=== PATIENT | female | born 1990 | race Caucasian/White ===

== ENCOUNTER 2018-06-02 16:02 | Observation (INO) | payer SELFPAY ==
[2018-06-02] MEDS ORDERED: NALOXONE HCL INJ 2 MG/2 ML DISP.SYRIN IV ONE (16:11)
[2018-06-02 16:26] LABS: ABSOLUTE EOSINOPHILS # (AUTO) 0.1 10^3/uL (0.0-0.6); ABSOLUTE LYMPHOCYTES (AUTO) 2.1 10^3/uL (0.5-4.7); ABSOLUTE MONOCYTES (AUTO) 0.4 10^3/uL (0.1-1.4); ABSOLUTE NEUT (AUTO) 3.6 10^3/uL (1.7-8.2); BASOPHILS % (AUTO) 0.4 % (0-2); EOSINOPHILS % (AUTO) 1.4 % (0-6); HEMATOCRIT 41.5 % (36.0-47.0); HEMOGLOBIN 14.3 g/dL (12.0-15.5); LYMPHOCYTES % (AUTO) 33.7 % (13-45); MEAN CORPUSCULAR HEMOGLOBIN 29.8 pg (27.0-33.4); MEAN CORPUSCULAR HGB CONC 34.5 g/dL (32.0-36.0); MEAN CORPUSCULAR VOLUME 86 fl (80-97); PLATELET COUNT 220 10^3/uL (150-450); RED BLOOD COUNT 4.82 10^6/uL (3.72-5.28); SEGMENTED NEUTROPHILS % (AUTO) 58.5 % (42-78); TOTAL CELLS COUNTED % (AUTO) 100 %; WHITE BLOOD COUNT 6.1 10^3/uL (4.0-10.5)
--- NOTE | 2018-06-02 16:28 | ER Document Report ---
ED General - General Stated Complaint: POSSIBLE OVERDOSE Time Seen by Provider: 06/02/18 16:11 - HPI Notes: Patient is a 27-year-old female that presents to the emergency department for chief complaint of overdose and suicide attempt. Patient has bipolar disease. Her family member found her locked in the bathroom today somnolent. Patient reported that she overdosed on her medications and was trying to kill herself. Patient's states that her home medication bottles are empty. He believes she took olanzapine and Klonopin. He states there was probably only 3 or 4 pills of the Klonopin left but he does not know the dose. He states there was only a few olanzapine left because she was due to get refills on all of her medications soon. The exact dose and quantity of her ingestion is unknown. He believes she ingested these medicines about 40 minutes prior to arrival in the emergency room. Patient currently is just stating she feels tired, she has no other complaints. Past Medical History: Bipolar type I Past Surgical History: Negative Social History: Daily tobacco/vaporized nicotine. Denies alcohol and drug use Family History: Reviewed and noncontributory for presenting illness Allergies: Reviewed, see documented allergy list. REVIEW OF SYSTEMS: CONSTITUTIONAL : No fever Fatigue No chills No diaphoresis No recent illness EENT: No vision changes No congestion No sore throat CARDIOVASCULAR: No chest pain No palpitations RESPIRATORY: No shortness of breath No cough No difficulty breathing GASTROINTESTINAL: No abdominal pain No nausea No vomiting No diarrhea GENITOURINARY: No dysuria No hematuria No difficulty urinating MUSCULOSKELETAL: No back pain No leg pain No arm pain SKIN: No rashes No lesions LYMPHATIC: No swollen, enlarged glands. NEUROLOGICAL: No lightheadedness No headache No weakness No paresthesias PSYCHIATRIC: No anxiety No depression PHYSICAL EXAMINATION: Vital signs reviewed, nursing noted reviewed. GENERAL: Somnolent and in no acute distress. HEAD: Atraumatic, normocephalic. EYES: Eyes appear normal, extraocular movements intact, sclera anicteric, conjunctiva are normal. ENT: nares patent, oropharynx clear without exudates. Moist mucous membranes. NECK: Normal range of motion, supple without lymphadenopathy LUNGS: Breath sounds clear to auscultation bilaterally and equal. No wheezes rales or rhonchi. HEART: Regular rate and rhythm without murmurs ABDOMEN: Soft, nontender, normoactive bowel sounds. No rebound, guarding, or rigidity. No masses appreciated. EXTREMITIES: Nontender, good range of motion, no pitting or edema. NEUROLOGICAL: GCS 14, moves all extremities spontaneously Motor and sensory grossly intact on exam. PSYCH: Normal mood, normal affect. SKIN: Warm, Dry, normal turgor, no rashes or lesions noted on exposed skin - Related Data Allergies/Adverse Reactions: No Known Allergies Allergy (Verified 06/02/18 17:24) Past Medical History - Social History Smoking Status: Never Smoker Family History: Reviewed & Not Pertinent Physical Exam - Vital signs Vitals: Temp Pulse Resp BP Pulse Ox 98.5 F 91 24 H 158/83 H 99 06/02/18 16:11 06/02/18 16:11 06/02/18 16:11 06/02/18 16:11 06/02/18 16:11 Course - Re-evaluation Re-evalutation: 06/02/18 16:26 Vitals reviewed. Nursing notes reviewed. Patient has a GCS of 14 at presentation, she is somnolent but wakes easily with light verbal stimuli. Patient does endorse suicidal ideation and attempt today. She was placed on telemetry monitoring. Case was discussed with poison control who recommends getting a repeat 4-hour Tylenol level and monitoring for CHAPERONE depression, hypertension, dysrhythmia and giving supportive care. Patient will not be given activated charcoal because of her altered mentation she is a risk for aspiration. 06/02/18 17:28 Patient reevaluated and is unchanged. She still wakes easily to verbal stimuli. GCS 14. Her oxygen has remained stable. bloodwork is unremarkable. Repeat Tylenol level at 4 hours will be ordered. Patient's family has now produced a more accurate list of medications which was provided to the nurse. It appears that she most likely only took mirtazapine 45 mg tablet, 7 or 8 of them. Mirtazapine has a half-life of 20-40 hours and for that reason she will be admitted to the hospital for further observation of her CHAPERONE depression. Patient discussed with Dr. Oakes who accepts admission. She is stable and unchanged at time of admission. Patient's family in agreement with this plan. Laboratory 06/02/18 06/02/18 16:13 16:13 WBC 6.1 RBC 4.82 Hgb 14.3 Hct 41.5 MCV 86 MCH 29.8 MCHC 34.5 RDW 12.0 Plt Count 220 Seg Neutrophils % 58.5 Lymphocytes % 33.7 Monocytes % 6.0 Eosinophils % 1.4 Basophils % 0.4 Absolute Neutrophils 3.6 Absolute Lymphocytes 2.1 Absolute Monocytes 0.4 Absolute Eosinophils 0.1 Absolute Basophils 0.0 Sodium 141.4 Potassium 3.7 Chloride 106 Carbon Dioxide 27 Anion Gap 8 BUN 11 Creatinine 0.57 Est GFR ( Amer) > 60 Est GFR (Non-Af Amer) > 60 Glucose 86 Calcium 10.4 H Total Bilirubin 0.4 Direct Bilirubin 0.2 Neonat Total Bilirubin Not Reportable Neonat Direct Bilirubin Not Reportable Neonat Indirect Bili Not Reportable AST 28 ALT 38 Alkaline Phosphatase 47 Total Protein 7.1 Albumin 5.0 Salicylates < 1.0 L Acetaminophen < 10 L Serum Alcohol < 10 - Vital Signs Vital signs: Temp Pulse Resp BP Pulse Ox 98.5 F 91 22 H 138/86 H 100 06/02/18 16:11 06/02/18 16:11 06/02/18 16:16 06/02/18 16:16 06/02/18 16:16 - Laboratory Result Diagrams: 06/02/18 16:13 06/02/18 16:13 Laboratory results interpreted by me: 06/02/18 16:13 Calcium 10.4 H Salicylates < 1.0 L Acetaminophen < 10 L - EKG Interpretation by Me Additional EKG results interpreted by me: 06/02/18 16:28 Interpreted by myself 05/26/2007: Normal sinus rhythm, rate 69, normal axis, no ectopy, no ST elevation Critical Care Note - Critical Care Note Total time excluding time spent on procedures (mins): 35 Comments: Altered mental status, polysubstance overdose, multiple frequent re-evaluations, discussions with poison control and family. Potential for respiratory and cardiovascular decompensation Discharge - Discharge Clinical Impression: Suicide attempt Medication overdose Qualifiers: Encounter type: initial encounter Injury intent: intentional self-harm Qualified Code(s): T50.902A - Poisoning by unspecified drugs, medicaments and biological substances, intentional self-harm, initial encounter Altered mental status Qualifiers: Altered mental status type: coma Coma depth: [place] coma 13-15 Coma timing: in the field (EMT or ambulance) Qualified Code(s): R40.6081 - [place] coma scale score 13-15, in the field [EMT or ambulance] Condition: Stable Disposition: ADMITTED OBSERVATION Admitting Provider: Hospitalist Unit Admitted: [facility]
--- NOTE | 2018-06-02 16:42 | EKG REPORT ---
SEVERITY:- ABNORMAL ECG - SINUS RHYTHM LEFT ATRIAL ABNORMALITY NONSPECIFIC ST-T CHANGES- INFERIOR LEADS : Confirmed by: Nicko Purvis MD 02-Jun-2018 16:41:10
[2018-06-02 16:43] LABS: ALANINE AMINOTRANSFERASE 38 U/L (9-52); ALKALINE PHOSPHATASE 47 U/L (38-126); ANION GAP 8 (5-19); ASPARTATE AMINO TRANSFERASE 28 U/L (14-36); BILIRUBIN,DIRECT 0.2 mg/dL (0.0-0.4); BILIRUBIN,TOTAL 0.4 mg/dL (0.2-1.3); BLOOD UREA NITROGEN 11 mg/dL (7-20); CALCIUM 10.4 mg/dL (8.4-10.2); CARBON DIOXIDE 27 mmol/L (22-30); CHLORIDE 106 mmol/L (98-107); GLUCOSE 86 mg/dL (75-110); POTASSIUM 3.7 mmol/L (3.6-5.0); SODIUM 141.4 mmol/L (137-145); TOTAL PROTEIN 7.1 g/dL (6.3-8.2)
[2018-06-02 16:48] LABS: ACETAMINOPHEN < 10 ug/mL (10-30); ALCOHOL < 10 mg/dL (NONE DETECTED); SALICYLATE < 1.0 mg/dL (2.0-20.0)
[2018-06-02 17:56] LABS: APPEARANCE,URINE CLEAR; BILIRUBIN,URINE NEGATIVE (NEGATIVE); COLOR,URINE STRAW; GLUCOSE, URINE NEGATIVE (NEGATIVE); KETONES,URINE NEGATIVE (NEGATIVE); LEUKOCYTE ESTERASE,URINE NEGATIVE (NEGATIVE); NITRITE,URINE NEGATIVE (NEGATIVE); PROTEIN,URINE NEGATIVE (NEGATIVE); URINE SPECIFIC GRAVITY 1.003; UROBILINOGEN,URINE NEGATIVE mg/dL (<2.0)
[2018-06-02 18:10] LABS: URINE AMPHETAMINES SCREEN NEGATIVE; URINE BARBITURATES SCREEN NEGATIVE; URINE BENZODIAZEPINES SCREEN NEGATIVE; URINE COCAINE SCREEN NEGATIVE; URINE MARIJUANA (THC) SCREEN NEGATIVE; URINE METHADONE SCREEN NEGATIVE; URINE PHENCYCLIDINE SCREEN NEGATIVE
--- NOTE | 2018-06-02 18:27 | PDOC H&P ---
History of Present Illness Admission Date/PCP: 06/02/18 17:45 History of Present Illness: ANALI PATRICIA is a 27 year old female with a history of bipolar disorder who presents with an intentional heterocyclic antidepressant overdose. 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 He says that for the last couple of weeks her behavior has been worse clarke from a depression and agitation standpoint. He said he typically handles her medications for her but he had given them to her to manage. He said he does not think she has been taking her Risperdal. Her prescription was due to be refilled sometime in the last couple of days and she still had over half of the prescription left. He said she takes Remeron at night to help her sleep, and he said yesterday he thinks that she had about 15 tablets left, and today she only had about 7 left. He said she was trying to help her daughter jump over a mud puddle and she could not hang on to the child and so the child fell into the mud puddle. The thinks that this episode caused her mental health symptoms to worsen and he believes that triggered this event. He said that she took the medication about 2 hours before he got her to the hospital. Here she is very somnolent and unable to provide me with a history. All the information is obtained from . On her EKG her QTC was not prolonged. The ER provider called poison control and they recommended conservative treatment at this time. Social History Smoking Status: Never Smoker Family History Family History: Reviewed & Not Pertinent Parental Family History Reviewed: No - Unable to obtain Children Family History Reviewed: NA Sibling(s) Family History Reviewed.: Unknown Medication/Allergy Allergies/Adverse Reactions: No Known Allergies Allergy (Verified 06/02/18 17:24) Review of Systems ROS unobtainable: Due to mental status Physical Exam Vital Signs: Temp Pulse Resp BP Pulse Ox 98.5 F 91 22 H 138/86 H 100 06/02/18 16:11 06/02/18 16:11 06/02/18 16:16 06/02/18 16:16 06/02/18 16:16 Intake & Output 06/01/18 06/02/18 06/03/18 06:59 06:59 06:59 Weight 47 kg General appearance: PRESENT: no acute distress - Somnolent, disheveled Head exam: PRESENT: atraumatic, normocephalic Eye exam: PRESENT: conjunctiva pink, other - Pupils are sluggish but reactive. ABSENT: conjunctival injection, scleral icterus Ear exam: PRESENT: normal external ear exam Mouth exam: PRESENT: neck supple Neck exam: ABSENT: carotid bruit, JVD, lymphadenopathy, tenderness, thyromegaly Respiratory exam: PRESENT: clear to auscultation kelvin, symmetrical, unlabored. ABSENT: accessory muscle use, rales, rhonchi, tachypnea, wheezes Cardiovascular exam: PRESENT: RRR, +S1, +S2 Vascular exam: PRESENT: normal capillary refill GI/Abdominal exam: PRESENT: normal bowel sounds, soft. ABSENT: distended, guarding, rebound, tenderness Extremities exam: ABSENT: clubbing, pedal edema Musculoskeletal exam: PRESENT: normal inspection. ABSENT: deformity Neurological exam: PRESENT: altered - Somnolent, other - She was not awake enough to compliant with the rest of the neurological examination, but when I first got there she was able to ambulate under her own power from the bathroom to get back into the bed Psychiatric exam: PRESENT: flat affect - But sedated, not really answering questions other than simple yes and no to 1 or 2 questions, other than that she did answer any questions for me Skin exam: PRESENT: dry, warm Results Laboratory Results: 06/02/18 16:13 06/02/18 16:13 06/02/18 06/02/18 06/02/18 16:13 16:13 17:44 WBC 6.1 RBC 4.82 Hgb 14.3 Hct 41.5 MCV 86 MCH 29.8 MCHC 34.5 RDW 12.0 Plt Count 220 Seg Neutrophils % 58.5 Lymphocytes % 33.7 Monocytes % 6.0 Eosinophils % 1.4 Basophils % 0.4 Absolute Neutrophils 3.6 Absolute Lymphocytes 2.1 Absolute Monocytes 0.4 Absolute Eosinophils 0.1 Absolute Basophils 0.0 Sodium 141.4 Potassium 3.7 Chloride 106 Carbon Dioxide 27 Anion Gap 8 BUN 11 Creatinine 0.57 Est GFR ( Amer) > 60 Est GFR (Non-Af Amer) > 60 Glucose 86 Calcium 10.4 H Total Bilirubin 0.4 AST 28 ALT 38 Alkaline Phosphatase 47 Total Protein 7.1 Albumin 5.0 Urine Color STRAW Urine Appearance CLEAR Urine pH 7.0 Ur Specific [place] 1.003 Urine Protein NEGATIVE Urine Glucose (UA) NEGATIVE Urine Ketones NEGATIVE Urine Blood NEGATIVE Urine Nitrite NEGATIVE Ur Leukocyte Esterase NEGATIVE Urine WBC (Auto) 0 Urine RBC (Auto) 0 Assessment & Plan - Diagnosis (1) Overdose of antidepressant Qualifiers: Encounter type: initial encounter Injury intent: intentional self-harm Qualified Code(s): T43.202A - Poisoning by unspecified antidepressants, intentional self-harm, initial encounter Is this a current diagnosis for this admission?: Yes Plan: Poison control recommends monitoring her. No indication for a bicarbonate infusion at this time. We will do serial EKGs to monitor her QTc. We will start her on some IV fluids. Psychiatry has been consulted, will follow their recommendations. - Time Time Spent: 50 to 70 Minutes
[2018-06-02] MEDS: RINGERS SOLUTION,LACTATED 1,000 ML IV PRN (19:16)
[2018-06-02] MEDS: HEPARIN SOD (PORCINE) 5,000 UNIT/ML 1 ML SYRINGE SUBCUT SCH (22:48)
[2018-06-02] MEDS ORDERED: NICOTINE 21 MG/24 HR PATCH.TD24 TD ONE (23:15)
[2018-06-03] MEDS: HEPARIN SOD (PORCINE) 5,000 UNIT/ML 1 ML SYRINGE SUBCUT SCH ×3 (05:00→21:02)
[2018-06-03 05:23] LABS: BLOOD UREA NITROGEN 16 mg/dL (7-20); CALCIUM 9.6 mg/dL (8.4-10.2); CARBON DIOXIDE 27 mmol/L (22-30); CHLORIDE 111 mmol/L (98-107); GLUCOSE 85 mg/dL (75-110); POTASSIUM 4.1 mmol/L (3.6-5.0); SODIUM 142.3 mmol/L (137-145)
--- NOTE | 2018-06-03 06:25 | EKG REPORT ---
SEVERITY:- NORMAL ECG - SINUS RHYTHM : Confirmed by: Nicko Purvis MD 03-Jun-2018 06:25:22
--- NOTE | 2018-06-03 06:26 | EKG REPORT ---
SEVERITY:- NORMAL ECG - SINUS RHYTHM : Confirmed by: Nicko Purvis MD 03-Jun-2018 06:25:35
[2018-06-03 06:47] LABS: ANION GAP 5 (5-19)
[2018-06-03] MEDS ORDERED: (PENDING PHARMACY ID) (Clonazepam [Clonazepam] 0.5 MG) PO SCH (10:30)
[2018-06-03] MEDS ORDERED: ARIPIPRAZOLE 2 MG TABLET PO SCH (11:00)
[2018-06-03] MEDS: RINGERS SOLUTION,LACTATED 1,000 ML IV PRN (11:45)
--- NOTE | 2018-06-03 15:41 | Progress Note ---
Provider Note Provider Note: The patient is medically cleared for placement. Poison control has closed the case.
--- NOTE | 2018-06-03 17:21 | PDOC PROGRESS REPORT ---
Subjective Progress Note for:: 06/03/18 Subjective:: No adverse events overnight. The EKGs we did overnight did not show any evidence of her QTC becoming prolonged. She refused her last couple of EKGs. She is been more awake today and has been able to eat. Apparently she was pitching a fit earlier today but had settled down by the time I saw her. Reason For Visit: INTENTIONAL HETEROCYCLIC ANTIDEPRESSANT OVERDOSE Physical Exam Vital Signs: Temp Pulse Resp BP Pulse Ox 98.8 F 90 18 119/59 L 99 06/03/18 15:10 06/03/18 15:10 06/03/18 15:10 06/03/18 15:10 06/03/18 15:10 Intake & Output 06/02/18 06/03/18 06/04/18 06:59 06:59 06:59 Intake Total 1200 Balance 1200 Weight 46.9 kg General appearance: PRESENT: no acute distress, cooperative, disheveled Respiratory exam: PRESENT: clear to auscultation kelvin, symmetrical, unlabored. ABSENT: accessory muscle use, crackles, rhonchi, tachypnea, wheezes Cardiovascular exam: PRESENT: RRR, +S1, +S2 Vascular exam: PRESENT: normal capillary refill GI/Abdominal exam: PRESENT: normal bowel sounds, soft. ABSENT: distended, guarding, rebound, tenderness Extremities exam: ABSENT: clubbing, pedal edema Musculoskeletal exam: PRESENT: normal inspection. ABSENT: deformity Neurological exam: PRESENT: alert, awake, oriented to person, oriented to place, oriented to time, oriented to situation Psychiatric exam: PRESENT: flat affect Skin exam: PRESENT: dry, warm Results Laboratory Results: 06/02/18 16:13 06/03/18 04:11 06/02/18 06/03/18 17:44 04:11 Sodium 142.3 Potassium 4.1 Chloride 111 H Carbon Dioxide 27 Anion Gap 5 BUN 16 Creatinine 0.62 Est GFR ( Amer) > 60 Est GFR (Non-Af Amer) > 60 Glucose 85 Calcium 9.6 Urine Color STRAW Urine Appearance CLEAR Urine pH 7.0 Ur Specific [place] 1.003 Urine Protein NEGATIVE Urine Glucose (UA) NEGATIVE Urine Ketones NEGATIVE Urine Blood NEGATIVE Urine Nitrite NEGATIVE Ur Leukocyte Esterase NEGATIVE Urine WBC (Auto) 0 Urine RBC (Auto) 0 Assessment & Plan - Diagnosis (1) Overdose of antidepressant Qualifiers: Encounter type: initial encounter Injury intent: intentional self-harm Qualified Code(s): T43.202A - Poisoning by unspecified antidepressants, intentio nal self-harm, initial encounter Is this a current diagnosis for this admission?: Yes Plan: She is awake now and not hypersomnolent. She said no evidence of QTC prolongation. We are going to continue IV fluids for another day, but I believe that she is medically stable for placement. She been seen by psychiatry. She is involuntarily committed. Psychiatric placement is pending. (2) Bipolar 2 disorder Is this a current diagnosis for this admission?: Yes Plan: I have resumed her Abilify, Zyprexa, and lithium. Awaiting psychiatry recommendations for medications. - Time Time Spent with patient: 15-24 minutes
--- NOTE | 2018-06-03 17:36 | PSYCHOLOGICAL NOTE ---
Psych Note - Psych Note Date seen by psych provider: 06/03/18 Time seen by psych provider: 13:55 Psych Note: Reason for Consult: Intentional Overdose ANALI PATRICIA is a 27 year old female with a history of bipolar disorder who presents with an intentional overdose. Medication recommendations per [facility]'s contracted psychiatrist Dr Lauren BEATTY are as follows please discontinue Abilify, Mirtazapine, clonipin, and lithium Please start Zyprexa 5mg Twice daily Please start Cogentin 1 mg Daily Bipolar 1 disorder Impression/plan: Patient is recommended to continue under IVC. Patient need to start medication recommendations; [facility] Patient's identifies himself as a strong support system. Patient will be re-evaluated. Dr. Marcos was consulted on the care and management of this patient; attending physician is in agreement with recommendations and dispositions.
[2018-06-03] MEDS ORDERED: DOXYCYCLINE HYCLATE 100 MG TABLET PO SCH (19:30)
[2018-06-03] MEDS: LORAZEPAM INJ 2 MG/1 ML VIAL IV PRN (21:03)
[2018-06-03] MEDS ORDERED: BENZTROPINE MESYLATE 1 MG TABLET PO SCH (22:00)
[2018-06-03] MEDS ORDERED: NICOTINE 21 MG/24 HR PATCH.TD24 TD SCH (22:00)
[2018-06-03] MEDS ORDERED: LITHIUM CARBONATE 150 MG PO SCH (22:00)
[2018-06-03] MEDS ORDERED: OLANZAPINE 2.5 MG TABLET PO SCH (22:00)
[2018-06-03] MEDS ORDERED: OLANZAPINE 2.5 MG TABLET PO ONE (22:30)
[2018-06-03] MEDS: OLANZAPINE 5 MG TABLET PO SCH (22:31)
[2018-06-04] MEDS: RINGERS SOLUTION,LACTATED 1,000 ML IV PRN (00:37)
[2018-06-04] MEDS: HEPARIN SOD (PORCINE) 5,000 UNIT/ML 1 ML SYRINGE SUBCUT SCH (05:21)
[2018-06-04 05:55] LABS: ANION GAP 6 (5-19); BLOOD UREA NITROGEN 14 mg/dL (7-20); CALCIUM 8.5 mg/dL (8.4-10.2); CARBON DIOXIDE 23 mmol/L (22-30); CHLORIDE 109 mmol/L (98-107); POTASSIUM 3.7 mmol/L (3.6-5.0); SODIUM 137.5 mmol/L (137-145)
[2018-06-04 05:57] LABS: GLUCOSE 89 mg/dL (75-110)
[2018-06-04] MEDS: OLANZAPINE 5 MG TABLET PO SCH (09:24)
[2018-06-04] MEDS: LORAZEPAM INJ 2 MG/1 ML VIAL IV PRN (09:28)
[2018-06-04] MEDS ORDERED: LORAZEPAM 0.5 MG TABLET PO PRN (11:58)
[2018-06-04 13:02] VITALS: BP 106/58
--- NOTE | 2018-06-04 13:20 | PSYCHOLOGICAL NOTE ---
Psych Note - Psych Note Date seen by psych provider: 06/04/18 Time seen by psych provider: 09:45 Psych Note: Reason for consult: OD Contact Permissions:Luz Marina Valdez [phone] Patient presents as irritable and uncooperative with blankets over her head and argumentative regarding her 's report on her baseline as irritable and preferred weight as 100lbs. When he is not present, she sits up and speaks openly reporting that she felt "great" for 2 months after discharging from [facility], however, felt like her lithium should be increased. She discontinued Zyprexa in last 30 days due to concern of weight gain reporting her average weight is 110lbs. She would like Klonopin changed to Ativan however, understands that [facility] will not make a recommendation for habit forming substances. She complains that [place] [facility]assumed she was drug seeking and treated me like crap". Patient endorses medication change made yesterday relaying "I feel stable" and denies SI, HI, and AV/H. She identifies her nib adjuster, faith friends and Luz Marina Valdez as environmental supports. Asked if she is safe at home, patient responds "Yes, I'm safe". Patient's reports that there are no drug abuse issues, that patient has been prescribed Klonopin for 2 years but does not abuse it. After discharge from [facility], patient engaged in long-distance phone consults with her provider who no longer felt comfortable with that mode care since patient's lithium level was not being monitored. Patient still does not have an outpatient provider b/c she was treated like a drug abuser, per report. He perseverates on his own addiction/recovery hx with alcohol and Benzodiazepines and his recently started [employer] which is producing "millions" in profit. Kamala and CHARLES alert [employer] that the overnight nurse found this morning to have urinated in his sleep, difficult to rouse and when roused with pinpoint pupils and fumbling to return a pill bottle to his pocket. Patient is alert and oriented x 4. Mood is euthymic with calm/cooperative affect. Patient denies SI, HI, and AV/H, does not appear to be responding to internal stimuli, and no delusions were noted. Conversational speech was WNL for rate, tone, and prosody. Eye contact was well maintained. Thought processes were linear, organized, and rational. Intellectual abilities were estimated within the average range. Attention/concentration was WNL while, insight, judgment, and impulse control were fair. Diagnosis: 296.7 (F31.9) Bipolar I Disorder, Current or most recent episode unspecified, per patient hx Medication recommendations as per psychiatric provider, Dr. Aguilar are as follows: please discontinue Abilify, Mirtazapine, clonipin, and lithium Please start Zyprexa 5mg Twice daily Please start Cogentin 1 mg Daily Impression/Plan: Patient is psychiatrically clear from acute psychiatric services and recommended to rescind IVC due to risk of harm to self or others aeb Patient denies/endorses SI, HI, and AV/H, does not appear to be responding to internal stimuli, and no delusions were noted. Plan is to discharge to friend Luz Marina Valdez who verbalizes that she will provide accountability for follow up outpatient, additional monitoring and medication administration. Patient was provided with IFS and local resource list of outpatient providers and provided with psycho-education about medication treatment compliance. Patient demonstrates ability to positively participate in her care by calling/leaving message with [facility] to make an initial appointment for [facility]. If the appointment time given is not reasonable, she verbalizes her intent to present to [facility] in the morning as walk- in. Consulted Dr. Marcos in the care and treatment of this patient and attending physician Luda Wilson who is in agreement with disposition and recommendation.
--- NOTE | 2018-06-04 18:01 | PDOC DISCHARGE SUMMARY ---
General - Admit/Disc Date/PCP Admission Date/Primary Care Provider: 06/02/18 17:45 Discharge Date: 06/04/18 - Discharge Diagnosis (1) Bipolar 2 disorder Is this a current diagnosis for this admission?: Yes Summary: Medication adjustments were made per psychiatry's recommendations; Abilify, Remeron, Klonopin, and lithium were discontinued. Zyprexa 5 mg twice daily and Cogentin 1 mg nightly initiated. (2) Overdose of antidepressant Is this a current diagnosis for this admission?: Yes Summary: Intentional overdose of Remeron. Poison control was contacted by the emergency department provider with recommendations for IV fluids, cardiac telemetry monitoring, psychiatric follow-up. She was admitted to [facility] on continuous cardiac telemetry; no evidence of QTC prolongation. Patient was provided generous IV fluids. She did refuse multiple EKGs, however, was agreeable to final EKG today. Fortunately this demonstrated a normal sinus rhythm with normal QTC interval. She was briefly placed under IVC status by our psychiatric team; after their evaluation today, they have recommended resending the IVC and allowing the patient to be discharged home in the care of a close friend, Luz Marina Valdez with close psychiatric follow-up. Medication adjustments were made per their recommendations; Abilify, Remeron, K lonopin, and lithium were discontinued. Zyprexa 5 mg twice daily and Cogentin 1 mg nightly initiated. At time of discharge, the patient was in stable condition, alert and oriented x4, participating fully in conversation with the mental health team. She is agreeable to having a backup support person, identified as Luz Marina Valdez, in addition to her . She is also agreeable with close follow-up with mental health provider; [facility]. The patient is further advised to establish with a local primary care provider. She is instructed to take her medications as prescribed and to return to the emergency department immediately for any concerning symptoms. - Additional Information Discharge Diet: Regular Discharge Activity: Activity As Tolerated Prescriptions: Benztropine Mesylate [Cogentin 1 mg Tablet] 1 mg PO QHS #30 tablet Lorazepam [Ativan 0.5 mg Tablet] 0.25 mg PO Q6HP PRN #12 tablet PRN Reason: Nicotine [Nicoderm 21 mg/24 Hr Transderm Patch] 1 each TD QHS #30 patch.td24 Olanzapine [Zyprexa 5 mg Tablet] 5 mg PO Q12 #60 tablet Home Medications: Benztropine Mesylate [Cogentin 1 mg Tablet] 1 mg PO QHS #30 tablet 06/04/18 Doxycycline Hyclate [Vibramycin 100 mg Tablet] 100 mg PO QPM tablet 06/04/18 Lorazepam [Ativan 0.5 mg Tablet] 0.25 mg PO Q6HP PRN #12 tablet 06/04/18 Nicotine [Nicoderm 21 mg/24 Hr Transderm Patch] 1 each TD QHS #30 patch.td24 06/04/18 Olanzapine [Zyprexa 5 mg Tablet] 5 mg PO Q12 #60 tablet 06/04/18 History of Present Illness History of Present Illness: Per H&P by Dr. Oakes: ANALI PATRICIA is a 27 year old female with a history of bipolar disorder who presents with an intentional heterocyclic antidepressant overdose. 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 He says that for the last couple of weeks her behavior has been worsening from a depression and agitation standpoint. He said he typically handles her medications for her but he had given them to her to manage. He said he does not think she has been taking her Risperdal. Her prescription was due to be refilled sometime in the last couple of days and she still had over half of the prescription left. He said she takes Remeron at night to help her sleep, and he said yesterday he thinks that she had about 15 tablets left, and today she only had about 7 left. He said she was trying to help her daughter jump over a mud puddle and she could not hang on to the child and so the child fell into the mud puddle. The thinks that this episode caused her mental health symptoms to worsen and he believes that triggered this event. He said that she took the medication about 2 hours before he got her to the hospital. Here she is very somnolent and unable to provide me with a history. All the information is obtained from . On her EKG her QTC was not prolonged. The ER provider called poison control and they recommended conservative treatment at this time. Physical Exam Vital Signs: Temp Pulse Resp BP Pulse Ox 97.9 F 77 16 106/58 L 100 06/04/18 13:00 06/04/18 13:00 06/04/18 13:00 06/04/18 13:00 06/04/18 13:00 Intake & Output 06/03/18 06/04/18 06/05/18 06:59 06:59 06:59 Intake Total 2165 831 Balance 2165 831 Weight 46.9 kg 48.6 kg General appearance: PRESENT: no acute distress, thin, well-developed, well- nourished Head exam: PRESENT: atraumatic, normocephalic Eye exam: PRESENT: conjunctiva pink, EOMI, PERRLA. ABSENT: scleral icterus Ear exam: PRESENT: normal external ear exam Mouth exam: PRESENT: moist, tongue midline Respiratory exam: PRESENT: clear to auscultation kelvin, symmetrical, unlabored. ABSENT: rales, rhonchi, wheezes Cardiovascular exam: PRESENT: RRR, +S1, +S2. ABSENT: diastolic murmur, rubs, systolic murmur Vascular exam: PRESENT: normal capillary refill GI/Abdominal exam: PRESENT: normal bowel sounds, soft. ABSENT: distended, guarding, mass, organolmegaly, rebound, tenderness Rectal exam: PRESENT: deferred Extremities exam: PRESENT: full ROM. ABSENT: calf tenderness, clubbing, pedal edema Neurological exam: PRESENT: alert, awake, oriented to person, oriented to place, oriented to time, oriented to situation, CN II-XII grossly intact. ABSENT: motor sensory deficit Psychiatric exam: PRESENT: appropriate affect, other - Evasive. ABSENT: homicidal ideation, suicidal ideation Skin exam: PRESENT: dry, intact, warm. ABSENT: cyanosis, rash Results Laboratory Results: 06/02/18 16:13 06/04/18 04:43 06/04/18 04:43 Sodium 137.5 Potassium 3.7 Chloride 109 H Carbon Dioxide 23 Anion Gap 6 BUN 14 Creatinine 0.49 L Est GFR ( Amer) > 60 Est GFR (Non-Af Amer) > 60 Glucose 89 Calcium 8.5 Qualifiers - * PATIENT BEING DISCHARGED WITH ANY OF THE FOLLOWING DIAGNOSIS: No Plan Discharge Plan: Discharged home in the care of close friend, Luz Marina Valdez, with close psychiatric follow-up. Establish with a local primary care provider as soon as possible. Return to the emergency department as needed for concerning symptoms. Time Spent: Greater than 30 Minutes
--- NOTE | 2018-06-04 19:24 | EKG REPORT ---
SEVERITY:- NORMAL ECG - SINUS RHYTHM : Confirmed by: Robbie Cazares 04-Jun-2018 19:23:46
== END 2018-06-04 13:37 | disposition home or self-care (01) ==
LOC: ER 16:02 → EH 17:45 → INTOOBSV 17:45 → OBSVTOIN 17:45 → 3W 21:56
PROVIDERS: ADMIT Internal Medicine; ATTEND Internal Medicine
DX: T43.022A Poisoning by tetracyclic antidepressants, intentional self-harm, initial encounter (principal); R40.0 Somnolence; F31.9 Bipolar disorder, unspecified; R40.2411 Glasgow coma scale score 13-15, in the field [EMT or ambulance]
CPT/HCPCS: 93005 ×4; 99291; 96374; 36415 ×3; 80307 ×4; 80178; 85025; 80048 ×2; 80053; 81001; 93010 ×3; G0378 ×4; J3490 ×2; J2060 ×2; J2310; J7120 ×3